=== PATIENT | male | born 1960 | race Caucasian/White ===

== ENCOUNTER 2025-01-01 15:35 | Emergency (ER) | payer MEDICAID ==
[~2025-01-01] VITALS: Ht 162.6 cm; Wt 99.5 kg
[~2025-01-01 15:35] MED LIST: ATOR20TA PO; OMEP20TA43 PO; SPIR50TA5 PO
[2025-01-01 15:50] VITALS: TEMP 98.4
[2025-01-01 16:17] LABS: MEAN PLATELET VOLUME 7.7 FL (7.4-10.4); RED CELL DISTRIBUTION WIDTH 13.5 % (11.5-14.5)
--- NOTE | 2025-01-01 16:20 | RADIOLOGY REPORT ---
DI CHEST,SINGLE VIEW, HISTORY: SOB COMPARISON: None None TECHNICAL DATA: 1 view of the chest was obtained. FINDINGS: Lines and tubes: None Cardiomediastinal silhouette: normal Pulmonary vasculature: normal Lung expansion: normal Lung airspace: normal Lung interstitium: normal Pleura: normal Pneumothorax: no Bones: Unremarkable Other: no IMPRESSION: No acute intrathoracic abnormality.
[2025-01-01 16:36] LABS: CREATININE 1.08 MG/DL (0.60-1.10); PRO BRAIN NATRIURETIC PEPTIDE < 30 PG/ML (0-125); TOTAL CARBON DIOXIDE 29.2 MMOL/L (24-32); eCRCL 56 ML/MIN; eGFR 68 ML/MIN
--- NOTE | 2025-01-01 17:12 | Physician Documentation ---
History of Present Illness ~ Chief Complaint: Shortness of Breath Stated Complaint: SOB Time Seen by MD: 21:19 HPI MSE patient is seen and examined in triage area. He complains of a three week history of wheezing, coughing up yellow phlegm and shortness for breath. No fevers or chills. States something is going on with my lungs. History of hypertension. Quit smoking many years ago. Labs ordered in triage. Medication Reconciliation Allergies: Coded Allergies: No Known Allergies (Unverified , 10/22/24) Scheduled Atorvastatin Calcium* (Lipitor*), 1 TAB PO DAILY Omeprazole (Omeprazole), 1 TAB PO DAILY Spironolactone (Spironolactone), 0.5 TAB PO DAILY Scheduled PRN albuterol inhaler (Pro-Air Inhaler), 2 PUFFS INH Q4HPRN PRN for wheezing Past Medical History Past Medical History: High Cholesterol, Hypertension Past Surgical History: no surgical history Review of Systems ROS Review of systems negative except specifically documented in HPI. Physical Exam Vital Signs: Temperature: 98.4, Source: Oral, Heart Rate: 101, Respiratory Rate: 16, BP: 140/79, Pulse Oximetry: 96, Weight: 99.500 Oxygen Flow Rate: 0 Pulse Oximetry Reflects: adequate oxygenation Physical Exam Medical screening exam: Patient is awake, alert, oriented. In no apparent distress. Lungs are clear to auscultation bilaterally. Vital signs reviewed. Awaiting bed assignment. Full physical exam upon arrival to room: General: Awake, alert, oriented. No apparent distress Respiratory: Lungs are clear to auscultation bilaterally. No respiratory distress. Chest: Normal shape and size. No accessory muscle use. Cardiovascular: Regular rate and rhythm. S1-S2. No murmur, gallop, rub. Gastrointestinal: Abdomen is soft. Nontender to palpation. Bowel sounds present. Extremities: No lower extremity edema, cyanosis or clubbing. Psychiatric: Normal mood and affect. Skin: Normal color. Warm and dry. Progress Progress Note 2138: Patient re-evaluated. He reports feeling less short of breath since he has been in the hospital. He was concerned for pneumonia. Reassurance provided. Results/Orders Results/Orders Vital Signs 01/01/25 01/01/25 01/01/25 15:50 20:05 21:22 Temp 98.4 Pulse 101 88 Resp 16 18 20 B/P (MAP) 140/79 167/95 (119) Pulse Ox 96 97 O2 Flow Rate 0 0 Laboratory Tests Test 01/01/25 16:07 White Blood Count 7.7 Red Blood Count 5.30 Hemoglobin 16.0 Hematocrit 46.6 Mean Corpuscular Volume 87.9 Mean Corpuscular Hemoglobin 30.2 Mean Corpuscular Hemoglobin Concent 34.3 Red Cell Distribution Width 13.5 Platelet Count 172 Mean Platelet Volume 7.7 Neutrophils (%) (Auto) 62.5 Lymphocytes (%) (Auto) 22.6 Monocytes (%) (Auto) 9.7 Eosinophils (%) (Auto) 4.0 Basophils (%) (Auto) 1.2 H Neutrophils # (Auto) 4.8 Lymphocytes # (Auto) 1.7 Monocytes # (Auto) 0.7 Eosinophils # (Auto) 0.3 Basophils # (Auto) 0.1 CBC Comment Sodium Level 144 Potassium Level 4.1 Chloride Level 109 H Carbon Dioxide Level 29.2 Anion Gap 6 L Blood Urea Nitrogen 14 Creatinine 1.08 Estimated GFR/1.73 m2 68 BUN/Creatinine Ratio 13.0 Glucose Level 111 H Lactic Acid Level 1.2 Calcium Level 8.5 Pro-B-Type Natriuretic Peptide < 30 Albumin 3.5 Chemistry Comments Microbiology Date/Time Source Procedure Growth Status 01/01/25 16:07 Blood Arm Left Blood Culture - Preliminary NO GROWTH AFTER 1 DAY Resulted EKG/XRAY/CT/US/VASC/MRI Chest X-Ray : Interpreted By: both Views: 1 VIEW Indication: shortness of breath Lungs: normal Mediastinum: normal Ribs/Bones: normal Abdomen: normal Impression: no acute disease Additional Comments [address] [address] DIAGNOSTIC RADIOLOGY Patient: CHRISTA NICOLE Medical Record: [id number] [facility] : 1960, Age: 64 Sex: Male Location: ER Patient Status: REG ER Service Date/Time: 01/01/25/ 1541 Ordering Physician: JULIAN ARENAS MD Exam: CHEST,SINGLE VIEW DI CHEST,SINGLE VIEW, HISTORY: SOB COMPARISON: None None TECHNICAL DATA: 1 view of the chest was obtained. FINDINGS: Lines and tubes: None Cardiomediastinal silhouette: normal Pulmonary vasculature: normal Lung expansion: normal Lung airspace: normal Lung interstitium: normal Pleura: normal Pneumothorax: no Bones: Unremarkable Other: no IMPRESSION: No acute intrathoracic abnormality. Electronically Signed by:JUANCARLOS SONG MD Date & Time: 01/01/251616 Dictated by: JUANCARLOS SONG MD Dictation date and time: 01/01/251616 Primary Care Provider: NO PRIMARY CARE PROVIDER cc: JULIAN ARENAS MD ~ Medical Decision Making Findings Medical screening exam. Patient was seen in triage. He complains of wheezing, cough, no fevers or chills. States increased shortness for breath for the past three weeks. He is in no apparent distress in triage. Vital signs are stable. Awaiting bed assignment. Patient presented with cough, wheezing and shortness for breath. No evidence of pneumonia on his imaging studies. His white blood cell count is normal. There is no wheezing on physical exam. He states he does not wish to use medications. He was initially tachycardic however his baseline heart rate appears to be in the 80s. Given this there is very low clinical suspicion for pneumonia being the underlying etiology. Low clinical suspicion for pulmonary embolism. Low clinical suspicion based on description of his symptoms for acute coronary syndrome. Low clinical suspicion for aortic dissection or other acute intra-thoracic emergencies. Possible underlying COPD/asthma. Reviewed with patient. He will follow up with his primary care provider. Given prescription for albuterol inhaler to treat intermittent wheezing. Differential Dx:Considerations: Include: asthma, bronchitis, CHF, COPD, hypertension, accelerated, hypertension, essential, hypertension, malignant, hyperventilation, myocardial infarction, pneumonia, pneumonitis, pneumothorax, pulmonary embolism, respiratory distress, respiratory failure, upper resp. infection Departure Time of Disposition: 21:39 Impression: Primary Impression: Acute upper respiratory infection Condition: Stable Discharge Instructions: Upper Respiratory Infection, Adult Additional Instructions: Suspect her symptoms are secondary to a upper respiratory infection which is li tracee viral in nature. Your x-ray does not have a pneumonia. Please return for any new or worsening symptoms. Recommend that you follow up with your primary care provider. Referrals: NO PRIMARY CARE PROVIDER (PCP) Prescriptions albuterol inhaler (Pro-Air Inhaler) 8.5 Gm Inhaler 2 PUFFS INH Q4HPRN PRN for wheezing for 30 Days, #18 GM Prov: BERT STEWART NP 01/01/25 Education Educated: Patient Educated regarding: diagnosis, treatment, need for follow up Signature Scribe Signature: No scribe Attestation: The note accurately reflects work and decisions made by me.Bert Stewart - BUBBA 01/03/25 16:07 This note was created with the assistance of voice recognition software whereby errors in grammar, syntax, and/or spelling may have occurred despite active proofreading efforts by the author. Please do not hesitate to contact the provider for clarification or for questions regarding the content of this document. BERT STEWART NP Jan 01, 2025 17:12
[2025-01-01 20:05] VITALS: BP 167/95; PULSE 88; O2SAT 97
[2025-01-01 21:22] VITALS: RESP 20
[2025-01-01] MEDS ORDERED: ALBU8HFA INH (21:43)
== END 2025-01-01 21:46 | disposition home or self-care (01) ==
LOC: ER 15:36
DX: J06.9 Acute upper respiratory infection, unspecified (principal); E78.00 Pure hypercholesterolemia, unspecified; I10 Essential (primary) hypertension
CPT/HCPCS: 36415; 71045; 80048; 83605; 83880; 85025; 87040; 99284